=== PATIENT | female | born 1935 ===

== ENCOUNTER 2017-09-10 16:15 | Emergency (ER) | payer MEDICARE ==
[~2017-09-10] VITALS: Ht 167.6 cm; Wt 65.8 kg
[~2017-09-10 16:15] MED LIST: ASPI81CH PO
[2017-09-10] MEDS ORDERED: Robaxin500 MG PO (17:30)
[2017-09-10] MEDS ORDERED: IBUP600 PO (17:30)
[2017-09-10 19:40] LABS: Source, Urine Clean Catch
[2017-09-10 19:45] LABS: Bilirubin, Urine Neg (Neg); Blood, Urine Neg (Neg); Glucose Qualitative, Urine Neg (Neg); Ketones, Urine Neg (Neg); Leukocyte Esterase, Urine Neg (Neg); Nitrite, Urine Neg (Neg); Protein, Urine Neg (Neg); Specific Gravity, Urine 1.015 (1.003-1.022); Urobilinogen, Urine NORM (Normal)
[2017-09-10 19:53] LABS: Appearance, Urine Clear (Clear); Color, Urine Pale Yellow (P-Yellow)
== END 2017-09-10 21:03 | disposition home or self-care (01) ==
LOC: ER 16:15
PROVIDERS: Emergency Medicine
DX: M54.5 Low back pain (principal)
CPT/HCPCS: 72170; 72220; 81003; 96372; 99283; J1885

== ENCOUNTER 2019-06-16 21:06 | Emergency (ER) | payer MEDICARE ==
[~2019-06-16] VITALS: Ht 165.1 cm; Wt 69.0 kg
[~2019-06-16 21:06] MED LIST changes: +IBUP600 PO; +Robaxin500 MG PO
[2019-06-16] MEDS ORDERED: Keflex500 MG PO (23:31)
== END 2019-06-16 23:52 | disposition home or self-care (01) ==
LOC: ER 21:06
DX: S51.812A Laceration without foreign body of left forearm, initial encounter (principal); W18.2XXA Fall in (into) shower or empty bathtub, initial encounter
CPT/HCPCS: 12002; 73090; 90471; 90714; 99283-25; A9270-GY

== ENCOUNTER 2019-06-21 13:26 | Emergency (ER) | payer MEDICARE ==
[~2019-06-21] VITALS: Ht 165.1 cm; Wt 68.0 kg
[~2019-06-21 13:26] MED LIST changes: +Keflex500 MG PO
== END 2019-06-21 16:39 | disposition home or self-care (01) ==
LOC: ER 13:26
DX: S51.812D Laceration without foreign body of left forearm, subsequent encounter (principal)
CPT/HCPCS: 99282

== ENCOUNTER 2019-09-16 11:19 | Emergency (ER) | payer MEDICARE ==
[~2019-09-16] VITALS: Ht 152.4 cm; Wt 65.8 kg
== END 2019-09-16 12:40 | disposition home or self-care (01) ==
LOC: ER 11:19
DX: R41.0 Disorientation, unspecified (principal); F03.90 Unspecified dementia, unspecified severity, without behavioral disturbance, psychotic disturbance, mood disturbance, and anxiety
CPT/HCPCS: 99284

== ENCOUNTER 2020-01-02 01:23 | Emergency (ER) | payer MEDICARE ==
[~2020-01-02] VITALS: Ht 152.4 cm; Wt 74.8 kg
[2020-01-02 01:58] LABS: BASOPHILS ABSOLUTE AUTO 0.07 K/mm3 (0.00-0.23); BASOPHILS PERCENT AUTO 1 % (0-2); EOSINOPHILS ABSOLUTE AUTO 0.16 K/mm3 (0.00-0.68); EOSINOPHILS PERCENT AUTO 2 % (0-6); Hematocrit 36.6 % (33.0-51.0); Hemoglobin 12.1 g/dL (11.5-16.0); IMMATURE GRAN ABSOLUTE AUTO 0.02 K/mm3 (0.00-0.10); IMMATURE GRAN PERCENT AUTO 0 % (0-1); LYMPHOCYTES ABSOLUTE AUTO 4.05 K/mm3 (0.84-5.20); LYMPHOCYTES PERCENT AUTO 49 % (21-46); MONOCYTES ABSOLUTE AUTO 0.74 K/mm3 (0.16-1.47); MONOCYTES PERCENT AUTO 9 % (4-13); Mean Corpuscular HGB 29.9 pg (26.0-34.0); Mean Corpuscular HGB Conc 33.1 g/dL (31.5-36.5); Mean Corpuscular Volume 90 fL (80-100); Mean Platelet Volume 12.8 fL (9.1-12.4); NEUTROPHILS PERCENT AUTO 39 % (41-73); Platelet Count 170 K/mm3 (150-400); RDW Coefficient Variation 12.9 % (11.7-14.2); RDW Standard Deviation 42.9 fL (35.1-46.3); Red Blood Cell Count 4.05 M/mm3 (3.80-5.20); White Blood Cell Count 8.24 K/mm3 (4.00-11.30)
[2020-01-02 02:16] LABS: Alanine Aminotransfer (ALT/SGP 22 U/L (12-78); Albumin, Blood 3.5 g/dL (3.4-5.0); Alk Phos 59 U/L (50-136); Anion Gap 10 mmol/L (6-16); Aspartate Aminotrans (AST/SGOT 19 U/L (12-37); Bilirubin, Total 0.6 mg/dL (0.1-1.0); Blood Urea Nitrogen 14 mg/dL (8-24); Bun/Creatinine Ratio 17.7 (12.0-20.0); CO2, Blood 24 mmol/L (21-32); Calcium, Blood 8.7 mg/dL (8.5-10.1); Chloride, Blood 109 mmol/L (98-108); Creatinine, Blood 0.79 mg/dL (0.40-1.00); Globulin, Blood 3.6 g/dL (2.2-4.0); Glomerular Filtration Rate >60 (60-); Glucose, Blood 160 mg/dL (70-99); Potassium, Blood 3.5 mmol/L (3.5-5.5); Sodium, Blood 143 mmol/L (136-145); Total Protein, Blood 7.1 g/dL (6.4-8.2)
[2020-01-02 02:28] LABS: Source, Urine Catheter
[2020-01-02 02:37] LABS: Bilirubin, Urine Neg (Neg); Blood, Urine Neg (Neg); Glucose Qualitative, Urine Neg (Neg); Ketones, Urine Neg (Neg); Leukocyte Esterase, Urine 3+ (Neg); Nitrite, Urine Neg (Neg); Protein, Urine Neg (Neg); Specific Gravity, Urine 1.005 (1.003-1.022); Urobilinogen, Urine NORM (Normal)
[2020-01-02 02:38] LABS: Appearance, Urine Clear (Clear); Color, Urine Yellow (P-Yellow)
[2020-01-02 02:43] LABS: Bacteria Mod /hpf; Red Blood Cells, Urine 0-2 /hpf (0-2); Squamous Epithelial Cells Few /hpf (Few)
[2020-01-02] MEDS ORDERED: Macrobid 100 M100 MG PO (03:30)
== END 2020-01-02 03:52 | disposition home or self-care (01) ==
LOC: ER 01:23
PROVIDERS: Student in an Organized Health Care Education/Training Program
DX: N39.0 Urinary tract infection, site not specified (principal); R41.82 Altered mental status, unspecified; F03.90 Unspecified dementia, unspecified severity, without behavioral disturbance, psychotic disturbance, mood disturbance, and anxiety
CPT/HCPCS: 36415; 80053; 81001; 85025; 93005; 93010

== ENCOUNTER 2020-02-13 11:09 | Emergency (ER) | payer MEDICARE ==
[~2020-02-13] VITALS: Ht 160 cm; Wt 63.5 kg
[~2020-02-13 11:09] MED LIST changes: +Macrobid 100 M100 MG PO
[2020-02-13] MEDS ORDERED: DONE5 PO (12:48)
[2020-02-13] MEDS ORDERED: QUET25 PO (12:48)
[2020-02-14] MEDS ORDERED: TRAM50 PO (14:27)
[2020-02-14] MEDS ORDERED: HYDCOR2.5C PR (14:27)
[2020-02-14] MEDS ORDERED: DOCU100 PO (14:27)
== END 2020-02-13 13:02 | disposition home or self-care (01) ==
LOC: ER 11:09
DX: F03.91 Unspecified dementia, unspecified severity, with behavioral disturbance (principal); R45.1 Restlessness and agitation
CPT/HCPCS: 99283

== ENCOUNTER 2020-02-14 13:14 | Emergency (ER) | payer MEDICARE ==
[~2020-02-14] VITALS: Ht 167.6 cm; Wt 68.0 kg
[~2020-02-14 13:14] MED LIST changes: +DONE5 PO; +QUET25 PO
[2020-02-14] MEDS ORDERED: HYDCOR2.5C PR (14:27)
[2020-02-14] MEDS ORDERED: TRAM50 PO (14:27)
[2020-02-14] MEDS ORDERED: DOCU100 PO (14:27)
== END 2020-02-14 15:15 | disposition home or self-care (01) ==
LOC: ER 13:14
DX: K64.4 Residual hemorrhoidal skin tags (principal); F03.90 Unspecified dementia, unspecified severity, without behavioral disturbance, psychotic disturbance, mood disturbance, and anxiety; Z79.899 Other long term (current) drug therapy
CPT/HCPCS: 99282

== ENCOUNTER 2020-03-01 10:50 | Emergency (ER) | payer MEDICARE ==
[~2020-03-01] VITALS: Ht 157.5 cm; Wt 65.8 kg
[~2020-03-01 10:50] MED LIST changes: +DOCU100 PO; +HYDCOR2.5C PR; +TRAM50 PO
== END 2020-03-01 11:18 | disposition home or self-care (01) ==
LOC: ER 10:50
DX: F03.90 Unspecified dementia, unspecified severity, without behavioral disturbance, psychotic disturbance, mood disturbance, and anxiety (principal); Z79.899 Other long term (current) drug therapy
CPT/HCPCS: 99285

== ENCOUNTER 2020-03-05 18:08 | Emergency (ER) | payer MEDICARE ==
[~2020-03-05] VITALS: Ht 162.6 cm; Wt 68.0 kg
== END 2020-03-05 21:56 | disposition home or self-care (01) ==
LOC: ER 18:08
DX: S01.81XA Laceration without foreign body of other part of head, initial encounter (principal); F03.91 Unspecified dementia, unspecified severity, with behavioral disturbance; R45.6 Violent behavior; Z79.899 Other long term (current) drug therapy; X78.0XXA Intentional self-harm by sharp glass, initial encounter
CPT/HCPCS: 12011; 70450; 99284-25

== ENCOUNTER 2020-03-21 06:26 | Emergency (ER) | payer MEDICARE ==
[~2020-03-21] VITALS: Ht 147.3 cm; Wt 59.0 kg
[2020-03-22] MEDS ORDERED: CEPH500 PO (17:35)
== END 2020-03-21 10:40 | disposition home or self-care (01) ==
LOC: ER 06:26
DX: R45.1 Restlessness and agitation (principal); F03.90 Unspecified dementia, unspecified severity, without behavioral disturbance, psychotic disturbance, mood disturbance, and anxiety; Z79.899 Other long term (current) drug therapy
CPT/HCPCS: 99285

== ENCOUNTER 2020-03-22 16:07 | Emergency (ER) | payer MEDICARE ==
[~2020-03-22] VITALS: Ht 160 cm; Wt 77.1 kg
[2020-03-22 17:09] LABS: Source, Urine Clean Catch
[2020-03-22 17:13] LABS: Appearance, Urine Clear (Clear); Bilirubin, Urine Neg (Neg); Blood, Urine Neg (Neg); Color, Urine Yellow (P-Yellow); Glucose Qualitative, Urine Neg (Neg); Ketones, Urine Neg (Neg); Leukocyte Esterase, Urine 2+ (Neg); Nitrite, Urine Neg (Neg); Protein, Urine Neg (Neg); Specific Gravity, Urine 1.005 (1.003-1.022); Urobilinogen, Urine NORM (Normal)
[2020-03-22 17:24] LABS: Bacteria Many /hpf; Red Blood Cells, Urine 0-2 /hpf (0-2); Squamous Epithelial Cells Few /hpf (Few); Transitional Epithelial Cells Few /hpf (0-Rare)
[2020-03-22] MEDS ORDERED: CEPH500 PO (17:35)
== END 2020-03-22 18:25 | disposition home or self-care (01) ==
LOC: ER 16:07
PROVIDERS: Emergency Medicine
DX: N39.0 Urinary tract infection, site not specified (principal); F03.90 Unspecified dementia, unspecified severity, without behavioral disturbance, psychotic disturbance, mood disturbance, and anxiety; R45.1 Restlessness and agitation; Z79.899 Other long term (current) drug therapy
CPT/HCPCS: 81001; 87077; 87086; 87186; 96372; 99285-25; A9270-GY; J2060; P9612

== ENCOUNTER → 2020-05-22 | Outpatient (CLI) | payer MEDICARE, OTHER ==
[~2020-05-22] MED LIST changes: +ACET325 PO; +ALUM-MAG HYDROX30 ML PO; +Amlodipine Bes2.5 MG PO; +BISA10S PR; +CEPH500 PO; +DULCOLAX400 MG/5 M PO; +Haloperidol1 MG PO; +LOPE2C PO
[2020-05-22 16:50] LABS: Appearance, Urine Clear (Clear); Bilirubin, Urine Neg (Neg); Blood, Urine Neg (Neg); Color, Urine Yellow (P-Yellow); Glucose Qualitative, Urine Neg (Neg); Ketones, Urine Neg (Neg); Leukocyte Esterase, Urine Neg (Neg); Nitrite, Urine Neg (Neg); Protein, Urine Neg (Neg); Urobilinogen, Urine 1+ (Normal)
== END | disposition home or self-care (01) ==
LOC: LAB 15:00 → LAB SHORT 15:00
PROVIDERS: Physician Assistant
DX: N39.0 Urinary tract infection, site not specified (principal)
CPT/HCPCS: 81003

== ENCOUNTER → 2020-07-12 | Outpatient (CLI) | payer MEDICARE, OTHER ==
[2020-07-12 17:42] LABS: Source, Urine Clean Catch
[2020-07-12 19:17] LABS: Bilirubin, Urine Neg (Neg); Blood, Urine Neg (Neg); Glucose Qualitative, Urine Neg (Neg); Ketones, Urine Neg (Neg); Leukocyte Esterase, Urine Neg (Neg); Nitrite, Urine Neg (Neg); Protein, Urine Neg (Neg); Specific Gravity, Urine 1.015 (1.003-1.022); Urobilinogen, Urine NORM (Normal)
[2020-07-12 19:31] LABS: Appearance, Urine Clear (Clear); Color, Urine Yellow (P-Yellow)
== END | disposition home or self-care (01) ==
LOC: LAB 16:45 → LAB SHORT 16:45
PROVIDERS: Nurse Practitioner
DX: N39.0 Urinary tract infection, site not specified (principal)
CPT/HCPCS: 81003